=== PATIENT | male | born 1970 | race Two or more races ===

== ENCOUNTER 2024-12-01 14:43 | Emergency (ER) | payer OTHER ==
[~2024-12-01] VITALS: Ht 172.7 cm; Wt 72.6 kg
[2024-12-01] MEDS ORDERED: 0.9 % SODIUM CHLORIDE 500 ML IV ONE (20:00)
[2024-12-01] MEDS ORDERED: KETOROLAC TROMETHAMINE 30 MG VIAL IV ONE (20:00)
[2024-12-01] MEDS ORDERED: METOCLOPRAMIDE HCL 10 MG in DEXTROSE 5 % IN WATER 50 ML IV ONE (20:00)
[2024-12-01 20:51] LABS: ALBUMIN 4.2 gm/dL (3.4-5.0); BILIRUBIN TOTAL 0.51 mg/dL (0.3-1.2); CALCIUM 9.7 mg/dL (8.5-10.1); CREATININE SERUM 1.25 mg/dL (0.70-1.30); GFR 59.75; GLOBULINA 3.9 G/DL (2.4-3.5); POTASSIUM 5.06 mEq/L (3.5-5.1); TOTAL PROTEIN 8.1 gm/dL (6.4-8.2)
[2024-12-01 20:56] LABS: HEMATOCRIT 49.6 % (39.0-48.0); HEMOGLOBIN 16.5 g/dL (13-16.00); MEAN CELL VOLUME 93.2 fL (80.0-100.00); MEAN CORPUSCULAR HGB CONC 33.3 g/dl (32.0-36.0); PLATELET COUNT 316 K/uL (150-450); RED BLOOD COUNT 5.32 M/uL (4.00-6.00)
[2024-12-01] MEDS ORDERED: MECLIZINE HCL25 MG PO (23:55)
== END 2024-12-02 00:23 | disposition home or self-care (01) ==
LOC: ER 14:44
PROVIDERS: Preventive Medicine Public Health & General Preventive Medicine
DX: R42 Dizziness and giddiness (principal)